=== PATIENT | male | born 1980 | race Hispanic/Latino ===

== ENCOUNTER 2020-11-24 18:28 | Emergency (ER) | payer SELFPAY ==
[~2020-11-24] VITALS: Ht 172.7 cm; Wt 77.2 kg
[2020-11-24 21:21] VITALS: BP 137/77
== END 2020-11-24 21:27 | disposition home or self-care (01) | DRG 103 ==
LOC: ED 18:28
DX: R51.9 Headache, unspecified (principal); M54.2 Cervicalgia; F17.200 Nicotine dependence, unspecified, uncomplicated; V59.50XA Passenger in pick-up truck or van injured in collision with unspecified motor vehicles in traffic accident, initial encounter